=== PATIENT | female | born 1960 | race African-American/Black ===

== ENCOUNTER 2017-04-03 16:17 | Emergency (ER) | payer OTHER, BC ==
[2017-04-03 16:30] VITALS: BMI 23.0
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
[2017-04-03 18:50] VITALS: TEMP 97.6
[2017-04-03 19:02] LABS: BASO % 0.7 % (0-2.0); EOS # 0.1 # (0-4.5); EOS % 1.8 % (0-4.5); LYMPH # 2.6 (8-40); MCH 33.6 pg (25.7-33.7); MCHC 33.2 g/dl (32.0-36.0); MEAN PLT VOLUME 8.7 fl (7.5-11.1); MONO # 0.3 # (3.8-10.2); NEUT # 1.5 # (42.8-82.8); NEUT % 33.6 % (42.8-82.8); PLATELET COUNT 203 K/MM3 (134-434); RDW 14.9 % (11.6-15.6); WHITE BLOOD COUNT 4.6 K/mm3 (4.0-10.0)
[2017-04-03 19:03] VITALS: BP 142/75; PULSE 50
[2017-04-03 20:16] LABS: ALBUMIN 4.1 g/dl (3.4-5.0); ALK PHOS 70 U/L (45-117); ANION GAP 7 (8-16); BILIRUBIN,TOTAL 0.8 mg/dL (0.2-1.0); CO2 29 mmol/L (21-32); CREATININE 0.8 mg/dL (0.55-1.02); GLUCOSE,RANDOM 83 mg/dL (74-106); SGOT/AST 20 U/L (15-37); SGPT/ALT 30 U/L (12-78); TOT PROT 7.2 g/dl (6.4-8.2)
[2017-04-03 21:50] LABS: URINE APPEARANCE CLEAR; URINE BILIRUBIN NEGATIVE (NEGATIVE); URINE BLOOD NEGATIVE (NEGATIVE); URINE COLOR STRAW; URINE GLUCOSE (UA) NEGATIVE (NEGATIVE); URINE KETONE NEGATIVE (NEGATIVE); URINE LEUK ESTERASE NEGATIVE (NEGATIVE); URINE NITRITE NEGATIVE (NEGATIVE); URINE PROTEIN NEGATIVE (NEGATIVE); URINE UROBILINOGEN NEGATIVE mg/dL (0.2-1.0)
[2017-04-03 23:20] LABS: URINE LEUK ESTERASE Negative (NEGATIVE)
== END 2017-04-03 22:44 | disposition home or self-care (01) ==
LOC: JERFT 16:17 → JER 16:17
CPT/HCPCS: 36415; 70450-TC; 80053; 81003; 85025; 99283-25